=== PATIENT | female | born 1975 | race American Indian/Alaskan Native ===

== ENCOUNTER 2018-11-27 00:18 | Emergency (ER) | payer SELFPAY ==
[2018-11-27 00:37] VITALS: BP 172/97
== END 2018-11-27 00:28 | disposition left against medical advice (07) ==
LOC: ED 00:18
DX: F41.9 Anxiety disorder, unspecified (principal); Z53.21 Procedure and treatment not carried out due to patient leaving prior to being seen by health care provider